=== PATIENT | female | born 1935 | race Caucasian/White ===

== ENCOUNTER 2016-07-01 10:18 | Outpatient (RCR) | payer MEDICARE ==
[2016-07-01 10:40] LABS: BASOPHILS % (AUTO) 1 % (0-2); EOSINOPHILS # (AUTO) 0.2 10^3uL; EOSINOPHILS % (AUTO) 6 % (0-4); LYMPHOCYTES # (AUTO) 1.2 X10^3; MEAN CORPUSCULAR HEMOGLOBIN 31.1 PG (26.0-34.0); MEAN PLATELET VOLUME 9.6 FL (6.0-9.5); MONOCYTES # (AUTO) 0.6 X10^3; MONOCYTES % (AUTO) 15 % (3-11); NEUTROPHILS # (AUTO) 1.9 X10^3; NEUTROPHILS % (AUTO) 48 % (51-67); PLATELET COUNT 253 10^3uL (150-450)
[2016-07-01 10:44] LABS: MEAN CORPUSCULAR HGB CONC 30.8 g/dL (31.0-37.0); MEAN CORPUSCULAR VOLUME 101 FL (80-100)
[2016-07-08 09:49] LABS: PLATELET COUNT 184 10^3uL (150-450); WHITE BLOOD COUNT 3.42 10^3uL (4.0-11.0)
[2016-07-08 09:50] LABS: MEAN CORPUSCULAR HEMOGLOBIN 31.6 PG (26.0-34.0); MEAN CORPUSCULAR HGB CONC 30.9 g/dL (31.0-37.0); MEAN CORPUSCULAR VOLUME 102 FL (80-100)
[2016-07-08 10:11] LABS: EOSINOPHILS % 7 % (0-4); MONOCYTES # 0.3 #; MONOCYTES % 10 % (3-11); SEGMENTED NEUTROPHILS % 45 % (51-67)
[2016-07-08 10:12] LABS: RBC MORPH NORMAL (NORMAL)
[2016-07-08 10:13] LABS: BAND NEUTROPHILS % 4 % (0-6); LYMPHOCYTES # 1.2 #; TOTAL CELLS COUNTED 100
[2016-07-15 10:19] LABS: PLATELET COUNT 225 10^3uL (150-450); WHITE BLOOD COUNT 4.12 10^3uL (4.0-11.0)
[2016-07-15 10:20] LABS: MEAN CORPUSCULAR HEMOGLOBIN 31.5 PG (26.0-34.0); MEAN CORPUSCULAR HGB CONC 31.3 g/dL (31.0-37.0); MEAN CORPUSCULAR VOLUME 101 FL (80-100)
[2016-07-15 10:24] LABS: BAND NEUTROPHILS % 2 % (0-6); EOSINOPHILS % 18 % (0-4); LYMPHOCYTES # 1.4 #; MONOCYTES # 0.4 #; MONOCYTES % 9 % (3-11); RBC MORPH NORMAL (NORMAL); SEGMENTED NEUTROPHILS % 35 % (51-67); TOTAL CELLS COUNTED 100
[2016-07-22 09:07] LABS: MEAN PLATELET VOLUME 9.9 FL (6.0-9.5); PLATELET COUNT 222 10^3uL (150-450)
[2016-07-22 09:53] LABS: MEAN CORPUSCULAR HEMOGLOBIN 32.1 PG (26.0-34.0); MEAN CORPUSCULAR HGB CONC 31.3 g/dL (31.0-37.0); MEAN CORPUSCULAR VOLUME 103 FL (80-100)
[2016-07-22 10:13] LABS: BAND NEUTROPHILS % 0 % (0-6); EOSINOPHILS % 16 % (0-4); LYMPHOCYTES # 1.3 #; MONOCYTES # 0.6 #; MONOCYTES % 15 % (3-11); SEGMENTED NEUTROPHILS % 35 % (51-67); TOTAL CELLS COUNTED 100
[2016-07-22 10:14] LABS: ANISOCYTOSIS SLIGHT; RBC MORPH SEE REFERENCE (NORMAL)
[2016-07-29 10:21] LABS: MEAN CORPUSCULAR HGB CONC 31.8 g/dL (31.0-37.0); MEAN PLATELET VOLUME 8.9 FL (6.0-9.5); PLATELET COUNT 237 10^3uL (150-450); WHITE BLOOD COUNT 3.42 10^3uL (4.0-11.0)
[2016-07-29 10:29] LABS: MEAN CORPUSCULAR HEMOGLOBIN 32.3 PG (26.0-34.0); MEAN CORPUSCULAR VOLUME 101 FL (80-100)
[2016-07-29 11:01] LABS: BAND NEUTROPHILS % 1 % (0-6); MONOCYTES # 0.4 #; MONOCYTES % 14 % (3-11); SEGMENTED NEUTROPHILS % 43 % (51-67)
[2016-07-29 11:02] LABS: ANISOCYTOSIS MODERATE; EOSINOPHILS % 11 % (0-4); RBC MORPH SEE REFERENCE (NORMAL); TOTAL CELLS COUNTED 100
[2016-08-11 11:31] LABS: MEAN PLATELET VOLUME 9.7 FL (6.0-9.5); PLATELET COUNT 208 10^3uL (150-450); WHITE BLOOD COUNT 3.59 10^3uL (4.0-11.0)
[2016-08-11 11:33] LABS: MEAN CORPUSCULAR HEMOGLOBIN 32.3 PG (26.0-34.0); MEAN CORPUSCULAR HGB CONC 31.4 g/dL (31.0-37.0); MEAN CORPUSCULAR VOLUME 103 FL (80-100)
[2016-08-11 11:46] LABS: ANISOCYTOSIS SLIGHT; BAND NEUTROPHILS % 0 % (0-6); EOSINOPHILS % 15 % (0-4); HYPOCHROMASIA SLIGHT; LYMPHOCYTES # 1.3 #; MONOCYTES % 1 % (3-11); RBC MORPH SEE REFERENCE (NORMAL); SEGMENTED NEUTROPHILS % 47 % (51-67); TOTAL CELLS COUNTED 100
[2016-08-19 09:35] LABS: BASOPHILS % (AUTO) 1 % (0-2); EOSINOPHILS # (AUTO) 0.4 10^3uL; EOSINOPHILS % (AUTO) 10 % (0-4); LYMPHOCYTES # (AUTO) 1.4 X10^3; MEAN CORPUSCULAR HGB CONC 32.2 g/dL (31.0-37.0); MEAN PLATELET VOLUME 9.4 FL (6.0-9.5); MONOCYTES # (AUTO) 0.6 X10^3; MONOCYTES % (AUTO) 13 % (3-11); NEUTROPHILS # (AUTO) 1.8 X10^3; NEUTROPHILS % (AUTO) 42 % (51-67); PLATELET COUNT 278 10^3uL (150-450); WHITE BLOOD COUNT 4.14 10^3uL (4.0-11.0)
[2016-08-19 09:37] LABS: MEAN CORPUSCULAR HEMOGLOBIN 33.3 PG (26.0-34.0); MEAN CORPUSCULAR VOLUME 104 FL (80-100)
[2016-08-26 09:57] LABS: MEAN CORPUSCULAR HGB CONC 31.9 g/dL (31.0-37.0); MEAN PLATELET VOLUME 8.9 FL (6.0-9.5); PLATELET COUNT 261 10^3uL (150-450); WHITE BLOOD COUNT 3.58 10^3uL (4.0-11.0)
[2016-08-26 10:04] LABS: MEAN CORPUSCULAR HEMOGLOBIN 32.2 PG (26.0-34.0); MEAN CORPUSCULAR VOLUME 101 FL (80-100)
[2016-08-26 10:17] LABS: BAND NEUTROPHILS % 0 % (0-6); SEGMENTED NEUTROPHILS % 50 % (51-67)
[2016-08-26 10:18] LABS: EOSINOPHILS % 10 % (0-4); MONOCYTES # 0.4 #; MONOCYTES % 12 % (3-11); RBC MORPH NORMAL (NORMAL); TOTAL CELLS COUNTED 100
[2016-08-26 10:26] LABS: ALBUMIN 4.1 g/dL (3.4-5.0); ANION GAP 16.3 MEQ/L (3-15); CALCULATED IONIZED CALCIUM 4.4 mg/dL (3.8-4.6); TOTAL PROTEIN 6.6 g/dL (6.4-8.5)
[2016-08-26 17:55] LABS: IRON 137 ug/dL (50-170); UNBOUND IRON CONTENT 67 ug/dl (126-382)
[2016-09-02 08:54] LABS: MEAN CORPUSCULAR HGB CONC 32.2 g/dL (31.0-37.0); MEAN PLATELET VOLUME 9.4 FL (6.0-9.5); PLATELET COUNT 226 10^3uL (150-450); WHITE BLOOD COUNT 3.57 10^3uL (4.0-11.0)
[2016-09-02 09:06] LABS: MEAN CORPUSCULAR HEMOGLOBIN 32.8 PG (26.0-34.0); MEAN CORPUSCULAR VOLUME 102 FL (80-100)
[2016-09-02 09:45] LABS: EOSINOPHILS % 10 % (0-4); LYMPHOCYTES # 1.7 #; MONOCYTES # 0.3 #; MONOCYTES % 10 % (3-11)
[2016-09-02 09:46] LABS: BAND NEUTROPHILS % 0 % (0-6); RBC MORPH NORMAL (NORMAL); SEGMENTED NEUTROPHILS % 32 % (51-67); TOTAL CELLS COUNTED 100
[2016-09-09 11:16] LABS: PLATELET COUNT 247 10^3uL (150-450)
[2016-09-09 11:20] LABS: MEAN CORPUSCULAR HEMOGLOBIN 32.3 PG (26.0-34.0); MEAN CORPUSCULAR HGB CONC 31.7 g/dL (31.0-37.0); MEAN CORPUSCULAR VOLUME 102 FL (80-100)
[2016-09-09 11:21] LABS: BAND NEUTROPHILS % 0 % (0-6); EOSINOPHILS % 10 % (0-4); LYMPHOCYTES # 1.6 #; MONOCYTES # 0.3 #; MONOCYTES % 7 % (3-11); RBC MORPH NORMAL (NORMAL); SEGMENTED NEUTROPHILS % 42 % (51-67); TOTAL CELLS COUNTED 100
[2016-09-16 10:15] LABS: MEAN PLATELET VOLUME 9.9 FL (6.0-9.5); PLATELET COUNT 152 10^3uL (150-450); WHITE BLOOD COUNT 3.23 10^3uL (4.0-11.0)
[2016-09-16 10:22] LABS: MEAN CORPUSCULAR HEMOGLOBIN 32.4 PG (26.0-34.0); MEAN CORPUSCULAR VOLUME 101 FL (80-100)
[2016-09-16 10:42] LABS: BAND NEUTROPHILS % 1 % (0-6); EOSINOPHILS % 11 % (0-4); LYMPHOCYTES # 1.3 #; MONOCYTES # 0.3 #; MONOCYTES % 10 % (3-11); RBC MORPH NORMAL (NORMAL); SEGMENTED NEUTROPHILS % 32 % (51-67); TOTAL CELLS COUNTED 100
[2016-09-23 10:04] LABS: BASOPHILS % (AUTO) 1 % (0-2); EOSINOPHILS # (AUTO) 0.4 10^3uL; EOSINOPHILS % (AUTO) 10 % (0-4); LYMPHOCYTES # (AUTO) 1.2 X10^3; MEAN PLATELET VOLUME 9.2 FL (6.0-9.5); MONOCYTES # (AUTO) 0.5 X10^3; MONOCYTES % (AUTO) 13 % (3-11); NEUTROPHILS # (AUTO) 1.5 X10^3; NEUTROPHILS % (AUTO) 42 % (51-67); PLATELET COUNT 241 10^3uL (150-450); WHITE BLOOD COUNT 3.46 10^3uL (4.0-11.0)
[2016-09-23 10:09] LABS: MEAN CORPUSCULAR HEMOGLOBIN 32.6 PG (26.0-34.0); MEAN CORPUSCULAR VOLUME 102 FL (80-100)
== END 2016-09-29 | disposition home or self-care (01) ==
LOC: LAB 10:18
PROVIDERS: ATTEND Internal Medicine Hematology & Oncology
DX: D64.9 Anemia, unspecified (principal); D46.9 Myelodysplastic syndrome, unspecified; D46.1 Refractory anemia with ring sideroblasts
CPT/HCPCS: 36415; 80053; 82728; 82784; 83540; 83550; 84155; 85025; 86334

== ENCOUNTER 2016-09-30 09:45 | Outpatient (RCR) | payer MEDICARE ==
[~2016-09-30 09:45] MED LIST: AC500T PO; AMIO200T2 PO; DGX.25T PO; FRSM40T PO; FURO-125 PO; HYDR1CAP2 PO; LORA-404 PO; LOSA100T8 PO; MAGN400O7 PO; WRF5T PO
[2016-09-30 10:02] LABS: MEAN PLATELET VOLUME 9.2 FL (6.0-9.5); PLATELET COUNT 218 10^3uL (150-450); WHITE BLOOD COUNT 3.73 10^3uL (4.0-11.0)
[2016-09-30 10:20] LABS: BAND NEUTROPHILS % 4 % (0-6); EOSINOPHILS % 13 % (0-4); LYMPHOCYTES # 1.5 #; MEAN CORPUSCULAR HEMOGLOBIN 32.1 PG (26.0-34.0); MEAN CORPUSCULAR VOLUME 100 FL (80-100); MONOCYTES # 0.4 #; MONOCYTES % 12 % (3-11); SEGMENTED NEUTROPHILS % 31 % (51-67); TOTAL CELLS COUNTED 100
[2016-09-30 10:21] LABS: ANISOCYTOSIS MODERATE; RBC MORPH SEE REFERENCE (NORMAL)
[2016-10-07 09:15] LABS: MEAN CORPUSCULAR HGB CONC 32.3 g/dL (31.0-37.0); MEAN PLATELET VOLUME 9.1 FL (6.0-9.5); PLATELET COUNT 208 10^3uL (150-450); WHITE BLOOD COUNT 3.58 10^3uL (4.0-11.0)
[2016-10-07 09:16] LABS: MEAN CORPUSCULAR HEMOGLOBIN 32.5 PG (26.0-34.0); MEAN CORPUSCULAR VOLUME 101 FL (80-100)
[2016-10-07 09:37] LABS: BAND NEUTROPHILS % 3 % (0-6); EOSINOPHILS % 20 % (0-4); HYPOCHROMASIA SLIGHT; LYMPHOCYTES # 1.2 #; MONOCYTES # 0.2 #; MONOCYTES % 6 % (3-11); NUCLEATED RED BLOOD CELLS 1; POIKILOCYTOSIS SLIGHT; POLYCHROMASIA SLIGHT; RBC MORPH SEE REFERENCE (NORMAL); SEGMENTED NEUTROPHILS % 29 % (51-67); TOTAL CELLS COUNTED 100
[2016-10-07 09:38] LABS: ANISOCYTOSIS MODERATE
[2016-10-14 12:06] LABS: BAND NEUTROPHILS % 1 % (0-6); EOSINOPHILS % 8 % (0-4); MONOCYTES % 14 % (3-11); SEGMENTED NEUTROPHILS % 32 % (51-67); TOTAL CELLS COUNTED 100
[2016-10-14 12:07] LABS: ANISOCYTOSIS MODERATE; HYPOCHROMASIA SLIGHT; POIKILOCYTOSIS SLIGHT; POLYCHROMASIA SLIGHT; RBC MORPH SEE REFERENCE (NORMAL)
[2016-10-21 09:53] LABS: BASOPHILS % (AUTO) 1 % (0-2); EOSINOPHILS # (AUTO) 0.3 10^3uL; EOSINOPHILS % (AUTO) 8 % (0-4); LYMPHOCYTES # (AUTO) 1.5 X10^3; MEAN CORPUSCULAR HGB CONC 32.2 g/dL (31.0-37.0); MEAN PLATELET VOLUME 9.3 FL (6.0-9.5); MONOCYTES # (AUTO) 0.5 X10^3; MONOCYTES % (AUTO) 12 % (3-11); NEUTROPHILS # (AUTO) 1.7 X10^3; NEUTROPHILS % (AUTO) 42 % (51-67); PLATELET COUNT 243 10^3uL (150-450); WHITE BLOOD COUNT 4.06 10^3uL (4.0-11.0)
[2016-10-21 09:59] LABS: MEAN CORPUSCULAR HEMOGLOBIN 32.1 PG (26.0-34.0); MEAN CORPUSCULAR VOLUME 100 FL (80-100)
[2016-10-28 11:01] LABS: MEAN CORPUSCULAR HGB CONC 32.3 g/dL (31.0-37.0); MEAN PLATELET VOLUME 10.3 FL (6.0-9.5); PLATELET COUNT 123 10^3uL (150-450); WHITE BLOOD COUNT 3.19 10^3uL (4.0-11.0)
[2016-10-28 11:43] LABS: MEAN CORPUSCULAR HEMOGLOBIN 32.7 PG (26.0-34.0); MEAN CORPUSCULAR VOLUME 101 FL (80-100)
[2016-10-28 12:00] LABS: BAND NEUTROPHILS % 0 % (0-6); EOSINOPHILS % 8 % (0-4); LYMPHOCYTES # 1.5 #; MONOCYTES # 0.5 #; MONOCYTES % 15 % (3-11); SEGMENTED NEUTROPHILS % 28 % (51-67); TOTAL CELLS COUNTED 100
[2016-10-28 12:01] LABS: RBC MORPH NORMAL (NORMAL)
[2016-11-04 08:25] LABS: MEAN CORPUSCULAR HGB CONC 31.8 g/dL (31.0-37.0); PLATELET COUNT 220 10^3uL (150-450); WHITE BLOOD COUNT 3.76 10^3uL (4.0-11.0)
[2016-11-04 08:33] LABS: MEAN CORPUSCULAR HEMOGLOBIN 31.8 PG (26.0-34.0); MEAN CORPUSCULAR VOLUME 100 FL (80-100)
[2016-11-04 08:43] LABS: BAND NEUTROPHILS % 2 % (0-6); EOSINOPHILS % 3 % (0-4); MONOCYTES # 0.2 #; MONOCYTES % 6 % (3-11); RBC MORPH NORMAL (NORMAL); SEGMENTED NEUTROPHILS % 36 % (51-67); TOTAL CELLS COUNTED 100
[2016-11-11 09:49] LABS: MEAN CORPUSCULAR HGB CONC 33.1 g/dL (31.0-37.0); PLATELET COUNT 208 10^3uL (150-450); WHITE BLOOD COUNT 3.49 10^3uL (4.0-11.0)
[2016-11-11 10:02] LABS: MEAN CORPUSCULAR HEMOGLOBIN 32.4 PG (26.0-34.0); MEAN CORPUSCULAR VOLUME 98 FL (80-100)
[2016-11-11 10:03] LABS: BAND NEUTROPHILS % 1 % (0-6); LYMPHOCYTES # 1.3 #; SEGMENTED NEUTROPHILS % 40 % (51-67)
[2016-11-11 10:04] LABS: EOSINOPHILS % 6 % (0-4); MONOCYTES # 0.5 #; MONOCYTES % 16 % (3-11); TOTAL CELLS COUNTED 100
[2016-11-11 10:05] LABS: ANISOCYTOSIS SLIGHT; RBC MORPH SEE REFERENCE (NORMAL)
[2016-11-18 10:26] LABS: BASOPHILS % (AUTO) 1 % (0-2); EOSINOPHILS # (AUTO) 0.2 10^3uL; EOSINOPHILS % (AUTO) 7 % (0-4); LYMPHOCYTES # (AUTO) 1.1 X10^3; MEAN CORPUSCULAR HGB CONC 32.2 g/dL (31.0-37.0); MEAN CORPUSCULAR VOLUME 99 FL (80-100); MEAN PLATELET VOLUME 9.4 FL (6.0-9.5); MONOCYTES # (AUTO) 0.4 X10^3; MONOCYTES % (AUTO) 14 % (3-11); NEUTROPHILS # (AUTO) 1.3 X10^3; NEUTROPHILS % (AUTO) 43 % (51-67); PLATELET COUNT 249 10^3uL (150-450); WHITE BLOOD COUNT 3.09 10^3uL (4.0-11.0)
[2016-11-25 15:42] LABS: BASOPHILS % (AUTO) 1 % (0-2); EOSINOPHILS # (AUTO) 0.3 10^3uL; EOSINOPHILS % (AUTO) 7 % (0-4); LYMPHOCYTES # (AUTO) 1.6 X10^3; MEAN PLATELET VOLUME 9.4 FL (6.0-9.5); MONOCYTES # (AUTO) 0.6 X10^3; MONOCYTES % (AUTO) 12 % (3-11); NEUTROPHILS # (AUTO) 2.2 X10^3; NEUTROPHILS % (AUTO) 45 % (51-67); PLATELET COUNT 259 10^3uL (150-450); WHITE BLOOD COUNT 4.86 10^3uL (4.0-11.0)
[2016-11-25 15:44] LABS: MEAN CORPUSCULAR HGB CONC 30.8 g/dL (31.0-37.0); MEAN CORPUSCULAR VOLUME 101 FL (80-100)
[2016-12-02 09:50] LABS: MEAN CORPUSCULAR HEMOGLOBIN 31.2 PG (26.0-34.0); MEAN PLATELET VOLUME 9.3 FL (6.0-9.5); PLATELET COUNT 233 10^3uL (150-450); WHITE BLOOD COUNT 3.65 10^3uL (4.0-11.0)
[2016-12-02 09:56] LABS: MEAN CORPUSCULAR HGB CONC 30.9 g/dL (31.0-37.0); MEAN CORPUSCULAR VOLUME 101 FL (80-100)
[2016-12-02 10:00] LABS: ANISOCYTOSIS SLIGHT; BAND NEUTROPHILS % 5 % (0-6); EOSINOPHILS % 7 % (0-4); LYMPHOCYTES # 1.8 #; MONOCYTES # 0.2 #; MONOCYTES % 5 % (3-11); NUCLEATED RED BLOOD CELLS 1; POIKILOCYTOSIS SLIGHT; RBC MORPH SEE REFERENCE (NORMAL); SEGMENTED NEUTROPHILS % 33 % (51-67); TOTAL CELLS COUNTED 100
[2016-12-09 09:21] LABS: MEAN CORPUSCULAR HGB CONC 32.3 g/dL (31.0-37.0); MEAN PLATELET VOLUME 9.2 FL (6.0-9.5); PLATELET COUNT 249 10^3uL (150-450); WHITE BLOOD COUNT 3.47 10^3uL (4.0-11.0)
[2016-12-09 09:23] LABS: MEAN CORPUSCULAR HEMOGLOBIN 32.2 PG (26.0-34.0); MEAN CORPUSCULAR VOLUME 100 FL (80-100)
[2016-12-09 10:25] LABS: ANISOCYTOSIS SLIGHT; BAND NEUTROPHILS % 0 % (0-6); EOSINOPHILS % 9 % (0-4); LYMPHOCYTES # 1.4 #; MONOCYTES # 0.5 #; MONOCYTES % 17 % (3-11); RBC MORPH SEE REFERENCE (NORMAL); SEGMENTED NEUTROPHILS % 34 % (51-67); TOTAL CELLS COUNTED 100
[2016-12-16 10:05] LABS: MEAN PLATELET VOLUME 9.1 FL (6.0-9.5); PLATELET COUNT 183 10^3uL (150-450); WHITE BLOOD COUNT 3.02 10^3uL (4.0-11.0)
[2016-12-16 10:15] LABS: MEAN CORPUSCULAR HEMOGLOBIN 31.9 PG (26.0-34.0); MEAN CORPUSCULAR HGB CONC 31.6 g/dL (31.0-37.0); MEAN CORPUSCULAR VOLUME 101 FL (80-100)
[2016-12-16 11:21] LABS: ANISOCYTOSIS MODERATE; BAND NEUTROPHILS % 1 % (0-6); EOSINOPHILS % 15 % (0-4); LYMPHOCYTES # 1.4 #; MONOCYTES # 0.3 #; MONOCYTES % 10 % (3-11); RBC MORPH SEE REFERENCE (NORMAL); SEGMENTED NEUTROPHILS % 28 % (51-67); TOTAL CELLS COUNTED 100
[2016-12-23 09:59] LABS: MEAN PLATELET VOLUME 9.3 FL (6.0-9.5); PLATELET COUNT 142 10^3uL (150-450); WHITE BLOOD COUNT 3.26 10^3uL (4.0-11.0)
[2016-12-23 10:09] LABS: MEAN CORPUSCULAR HEMOGLOBIN 31.5 PG (26.0-34.0); MEAN CORPUSCULAR HGB CONC 30.8 g/dL (31.0-37.0); MEAN CORPUSCULAR VOLUME 102 FL (80-100)
[2016-12-23 10:37] LABS: ANISOCYTOSIS MARKED; BAND NEUTROPHILS % 0 % (0-6); EOSINOPHILS % 16 % (0-4); HYPOCHROMASIA SLIGHT; LYMPHOCYTES # 1.2 #; MONOCYTES # 0.3 #; MONOCYTES % 11 % (3-11); RBC MORPH SEE REFERENCE (NORMAL); SEGMENTED NEUTROPHILS % 35 % (51-67); TOTAL CELLS COUNTED 100
== END 2016-12-29 | disposition home or self-care (01) ==
LOC: LAB 09:45
PROVIDERS: ATTEND Internal Medicine Hematology & Oncology
DX: D46.1 Refractory anemia with ring sideroblasts (principal)
CPT/HCPCS: 36415; 85025

== ENCOUNTER → 2016-11-25 | Outpatient (CLI) | payer MEDICARE ==
[2016-11-25 09:26] LABS: ANION GAP 9.7 MEQ/L (3-15); CALCULATED IONIZED CALCIUM 4.2 mg/dL (3.8-4.6)
== END ==
LOC: LAB 08:25
PROVIDERS: ATTEND Internal Medicine Cardiovascular Disease
DX: I49.5 Sick sinus syndrome (principal); I48.0 Paroxysmal atrial fibrillation; I10 Essential (primary) hypertension
CPT/HCPCS: 36415; 80053; 80061; 84436; 84443; 84480

== ENCOUNTER 2016-12-30 10:24 | Outpatient (RCR) | payer MEDICARE ==
[2016-12-30 09:35] LABS: MEAN PLATELET VOLUME 9.1 FL (6.0-9.5); PLATELET COUNT 235 10^3uL (150-450); WHITE BLOOD COUNT 3.22 10^3uL (4.0-11.0)
[2016-12-30 09:45] LABS: MEAN CORPUSCULAR HEMOGLOBIN 31.9 PG (26.0-34.0); MEAN CORPUSCULAR VOLUME 100 FL (80-100)
[2016-12-30 10:00] LABS: BAND NEUTROPHILS % 2 % (0-6); EOSINOPHILS % 11 % (0-4); LYMPHOCYTES # 1.4 #; MONOCYTES # 0.1 #; MONOCYTES % 4 % (3-11); RBC MORPH NORMAL (NORMAL); SEGMENTED NEUTROPHILS % 38 % (51-67); TOTAL CELLS COUNTED 100
[2017-01-06 10:56] LABS: MEAN CORPUSCULAR HGB CONC 32.5 g/dL (31.0-37.0); MEAN PLATELET VOLUME 9.2 FL (6.0-9.5); PLATELET COUNT 224 10^3uL (150-450); WHITE BLOOD COUNT 2.66 10^3uL (4.0-11.0)
[2017-01-06 11:01] LABS: MEAN CORPUSCULAR HEMOGLOBIN 32.6 PG (26.0-34.0); MEAN CORPUSCULAR VOLUME 100 FL (80-100)
[2017-01-06 11:21] LABS: BAND NEUTROPHILS % 0 % (0-6); EOSINOPHILS % 9 % (0-4); LYMPHOCYTES # 1.1 #; MONOCYTES # 0.3 #; MONOCYTES % 13 % (3-11); RBC MORPH SEE REFERENCE (NORMAL); SEGMENTED NEUTROPHILS % 35 % (51-67); TOTAL CELLS COUNTED 100
[2017-01-06 11:22] LABS: ANISOCYTOSIS MODERATE
[2017-01-13 09:53] LABS: MEAN CORPUSCULAR HEMOGLOBIN 33.5 PG (26.0-34.0); MEAN CORPUSCULAR HGB CONC 32.7 g/dL (31.0-37.0); MEAN CORPUSCULAR VOLUME 103 FL (80-100); MEAN PLATELET VOLUME 9.5 FL (6.0-9.5); PLATELET COUNT 185 10^3uL (150-450); WHITE BLOOD COUNT 3.58 10^3uL (4.0-11.0)
[2017-01-13 09:59] LABS: BAND NEUTROPHILS % 0 % (0-6); EOSINOPHILS % 12 % (0-4); LYMPHOCYTES # 1.8 #; MONOCYTES # 0.2 #; MONOCYTES % 6 % (3-11); SEGMENTED NEUTROPHILS % 30 % (51-67); TOTAL CELLS COUNTED 100
[2017-01-13 10:00] LABS: RBC MORPH SEE REFERENCE (NORMAL)
[2017-01-20 11:31] LABS: BASOPHILS % (AUTO) 1 % (0-2); EOSINOPHILS # (AUTO) 0.5 10^3uL; EOSINOPHILS % (AUTO) 11 % (0-4); LYMPHOCYTES # (AUTO) 1.2 X10^3; MEAN CORPUSCULAR HGB CONC 32.3 g/dL (31.0-37.0); MEAN PLATELET VOLUME 9.4 FL (6.0-9.5); MONOCYTES # (AUTO) 0.6 X10^3; MONOCYTES % (AUTO) 14 % (3-11); NEUTROPHILS # (AUTO) 1.8 X10^3; NEUTROPHILS % (AUTO) 43 % (51-67); PLATELET COUNT 145 10^3uL (150-450); WHITE BLOOD COUNT 4.18 10^3uL (4.0-11.0)
[2017-01-20 11:32] LABS: MEAN CORPUSCULAR HEMOGLOBIN 32.5 PG (26.0-34.0); MEAN CORPUSCULAR VOLUME 101 FL (80-100)
[2017-01-27 09:44] LABS: BASOPHILS % (AUTO) 0 % (0-2); EOSINOPHILS # (AUTO) 0.4 10^3uL; EOSINOPHILS % (AUTO) 8 % (0-4); LYMPHOCYTES # (AUTO) 1.1 X10^3; MEAN CORPUSCULAR HGB CONC 32.5 g/dL (31.0-37.0); MEAN PLATELET VOLUME 9.3 FL (6.0-9.5); MONOCYTES # (AUTO) 0.6 X10^3; MONOCYTES % (AUTO) 12 % (3-11); NEUTROPHILS # (AUTO) 2.7 X10^3; NEUTROPHILS % (AUTO) 56 % (51-67); PLATELET COUNT 206 10^3uL (150-450); WHITE BLOOD COUNT 4.81 10^3uL (4.0-11.0)
[2017-01-27 09:45] LABS: MEAN CORPUSCULAR HEMOGLOBIN 32.5 PG (26.0-34.0); MEAN CORPUSCULAR VOLUME 100 FL (80-100)
[2017-02-03 10:39] LABS: MEAN CORPUSCULAR HGB CONC 32.5 g/dL (31.0-37.0); MEAN PLATELET VOLUME 8.6 FL (6.0-9.5); PLATELET COUNT 275 10^3uL (150-450)
[2017-02-03 10:42] LABS: MEAN CORPUSCULAR HEMOGLOBIN 32.4 PG (26.0-34.0); MEAN CORPUSCULAR VOLUME 100 FL (80-100)
[2017-02-03 10:57] LABS: BAND NEUTROPHILS % 3 % (0-6); EOSINOPHILS % 15 % (0-4); LYMPHOCYTES # 1.5 #; MONOCYTES # 0.3 #; MONOCYTES % 9 % (3-11); SEGMENTED NEUTROPHILS % 33 % (51-67); TOTAL CELLS COUNTED 100
[2017-02-03 10:58] LABS: ANISOCYTOSIS MODERATE; RBC MORPH SEE REFERENCE (NORMAL)
== END 2017-02-11 19:17 | disposition home or self-care (01) ==
LOC: LAB 10:24
PROVIDERS: ATTEND Internal Medicine Hematology & Oncology
DX: D46.1 Refractory anemia with ring sideroblasts (principal)
CPT/HCPCS: 36415; 85025

== ENCOUNTER → 2017-01-09 | Outpatient (REF) | payer MEDICARE | LOC: LAB 11:00 | PROVIDERS: ATTEND Family Medicine | DX: E03.8 Other specified hypothyroidism (principal) | CPT/HCPCS: 84443 ==

== ENCOUNTER → 2017-02-10 | Outpatient (CLI) | payer MEDICARE ==
[2017-02-10 09:50] LABS: MEAN CORPUSCULAR HGB CONC 32.3 g/dL (31.0-37.0); MEAN PLATELET VOLUME 8.8 FL (6.0-9.5); PLATELET COUNT 226 10^3uL (150-450); WHITE BLOOD COUNT 3.45 10^3uL (4.0-11.0)
[2017-02-10 09:57] LABS: MEAN CORPUSCULAR HEMOGLOBIN 32.3 PG (26.0-34.0); MEAN CORPUSCULAR VOLUME 100 FL (80-100)
[2017-02-10 10:02] LABS: ALBUMIN 3.9 g/dL (3.4-5.0); ANION GAP 11.8 MEQ/L (3-15); TOTAL PROTEIN 6.7 g/dL (6.4-8.5)
[2017-02-10 10:36] LABS: BAND NEUTROPHILS % 1 % (0-6); EOSINOPHILS % 11 % (0-4); HYPOCHROMASIA SLIGHT; LYMPHOCYTES # 1.2 #; MONOCYTES # 0.5 #; MONOCYTES % 16 % (3-11); RBC MORPH SEE REFERENCE (NORMAL); SEGMENTED NEUTROPHILS % 38 % (51-67); TOTAL CELLS COUNTED 100
[2017-02-10 10:37] LABS: ANISOCYTOSIS MODERATE
[2017-02-10 13:29] LABS: IRON 46 ug/dL (50-170); UNBOUND IRON CONTENT 146 ug/dl (126-382)
== END ==
LOC: LAB 09:27
PROVIDERS: ATTEND Internal Medicine Hematology & Oncology
DX: D46.1 Refractory anemia with ring sideroblasts (principal)
CPT/HCPCS: 36415; 80053; 82728; 82784; 83540; 83550; 84155; 85025; 86334